=== PATIENT | female | born 1995 | race Caucasian/White ===

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

== ENCOUNTER 2019-07-07 13:58 | Emergency (ER) | payer OTHER ==
[~2019-07-07] VITALS: Ht 167.6 cm; Wt 65.8 kg
[2019-07-07 14:11] VITALS: BP_SYST 128
--- NOTE | 2019-07-07 14:15 | NUR ---
Patient to ER bed 07 to gown for evaluation. Side rails up.
--- NOTE | 2019-07-07 14:30 | NUR ---
Urine specimen collected and dropped off at the lab.
--- NOTE | 2019-07-07 14:35 | NUR ---
Patient arrived in the ED accompanied by dad. C/O lower abdominal pain, burning and itching since Saturday - Taking Azo. VSS WNL, respirations even and unlabored, denied any respiratory distress at this time. Patient is speaking in complete sentences. Dad at bedside.
[2019-07-07 14:36] LABS: BILIRUBIN,URINE 1+ (NEGATIVE); CLARITY/URINE CLEAR (CLEAR); COLOR,URINE AMBER (YELLOW); GLUCOSE,URINE 1+ (NEGATIVE); KETONES,URINE NEGATIVE (NEGATIVE); LEUKOCYTE ESTERASE ,URINE 3+ (NEGATIVE); NITRITE, URINE POSITIVE (NEGATIVE); PH,URINE 6.5 (5.0-8.0); PROTEIN URINE 2+ (NEGATIVE)
[2019-07-07 14:38] LABS: BLOOD, URINE TRACE (NEGATIVE)
--- NOTE | 2019-07-07 14:40 | NUR ---
CESAR Urbano (JACKIE) at bedside examining patient.
--- NOTE | 2019-07-07 14:50 | NUR ---
Chaperoned Miesha DEJESUS) with pelvic exam.
[2019-07-07] MEDS ORDERED: cefTRIAXone 250 MG in LIDOCAINE 1%, 20 ML MDV 0.9 ML IM ONE (15:00)
[2019-07-07] MEDS ORDERED: AZITHROMYCIN 250 MG TABLET PO ONE (15:00)
[2019-07-07 15:16] LABS: BACTERIA,URINE MODERATE /HPF (None Seen); WBC,URINE 20-50 /HPF (0-3)
--- NOTE | 2019-07-07 16:00 | NUR ---
Patient given written and verbal discharge instructions and verbalizes understanding. ER MD discussed with patient the results and treatment provided. Patient in stable condition. ID arm band removed. Rx of Cipro, Pyridium, Motrin, Flagyl given. Patient educated on pain management and to follow up with PMD. Pain Scale 0/10 on discharge. Opportunity for questions provided and answered. Medication side effect fact sheet provided.
[2019-07-07 16:33] VITALS: BP_SYST 130
== END 2019-07-07 16:00 | disposition home or self-care (01) ==
LOC: SED 13:58
DX: N39.0 Urinary tract infection, site not specified (principal); N76.0 Acute vaginitis; R03.0 Elevated blood-pressure reading, without diagnosis of hypertension
CPT/HCPCS: 36415; 81000; 81025; 87086; 87186; 87210; 87491; 87591; 96372; 99283; J0696; J2001; Q0144